=== PATIENT | male | born 1950 | race Caucasian/White ===

== ENCOUNTER 2017-04-30 10:28 | Emergency (ER) | payer MEDICARE, BC, OTHER ==
[~2017-04-30] VITALS: Ht 177.8 cm; Wt 99.8 kg
[2017-04-30] MEDS ORDERED: LUTE20TA PO (10:46)
[2017-04-30] MEDS ORDERED: CALC600T21 PO (10:46)
[2017-04-30] MEDS ORDERED: VENL75TA2 PO (10:46)
[2017-04-30] MEDS ORDERED: MULT1TAB10 PO (10:46)
[2017-04-30] MEDS ORDERED: TRIA0.1L EX (10:46)
[2017-04-30] MEDS ORDERED: LIPI20TA PO (10:46)
[2017-04-30] MEDS ORDERED: VITA200038 PO (10:46)
[2017-04-30] MEDS ORDERED: CARB20TA PO (10:46)
--- NOTE | 2017-04-30 12:20 | REP ---
CT HEAD WITHOUT CONTRAST: HISTORY: Altered mental status. COMPARISON: 11/14/2005 The patient is status post left temporoparietal craniotomy. An area of decreased attenuation is present in the left temporal and parietal lobes. There is dilatation of the overlying cortical sulci and body of the left lateral ventricle. This represents encephalomalacia. A small area of decreased attenuation is present in the right frontal lobe. There is dilatation of the overlying cortical sulci. This represents an old infarction. Areas of decreased attention are present in the periventricular and subcortical white matter. This represents small vessel ischemic disease. There is no intraparenchymal hemorrhage, mass or midline shift. The ventricular system and cortical sulci as well as subarachnoid space in the posterior fossa are dilated consistent with moderate volume loss. There is no extracerebral collection. The visualized sinuses are clear. IMPRESSION: 1. Left temporoparietal lobe encephalomalacia. 2. 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 3. Small vessel ischemic disease. 4. Moderate volume loss. Signed by Godwin Clifton MD 04/30/2017 12:24 P
[2017-04-30 12:37] LABS: BASO % 0.4 % (0.0-1.0); EOS % 0.5 % (0.0-3.0); LARGE UNSTAINED CELL # 0.1 K/mm3 (0.0-0.4); LARGE UNSTAINED CELL % 1.8 % (0.0-4.0); LYMPH # 0.8 K/mm3 (1.5-4.5); LYMPH % 11.4 % (24.0-44.0); MEAN CORPUSCULAR HEMOGLOBIN 31.3 pg (27.0-33.0); MEAN CORPUSCULAR VOLUME 91.9 fl (80.0-96.0); MONO # 0.6 K/mm3 (0.0-0.8); MONO % 8.4 % (0.0-5.0); NEUTROPHILS # 5.2 K/mm3 (1.8-7.7); NEUTROPHILS % 77.6 % (36.0-66.0); PLATELET COUNT, AUTOMATED 184 k/mm3 (150-450); WHITE BLOOD COUNT 6.7 K/mm3 (4.0-10.0)
[2017-04-30 12:51] LABS: ALBUMIN 4.2 GM/DL (3.2-5.2); ALBUMIN/GLOBULIN RATIO 1.14 (1.00-1.93); ALKALINE PHOSPHATASE 143 U/L (45-117); ALT/SGPT 26 U/L (12-78); ANION GAP 7 MEQ/L (8-16); AST/SGOT 16 U/L (15-37); BILIRUBIN,DIRECT 0.1 MG/DL (0.0-0.2); BILIRUBIN,TOTAL 0.5 MG/DL (0.2-1.0); BLOOD UREA NITROGEN 21 MG/DL (7-18); CALCIUM LEVEL 8.9 MG/DL (8.8-10.2); CARBON DIOXIDE LEVEL 26 MEQ/L (21-32); CHLORIDE LEVEL 105 MEQ/L (98-107); CREATININE FOR GFR 1.23 MG/DL (0.70-1.30); GLOMERULAR FILTRATION RATE > 60.0 (>49); GLUCOSE, FASTING 112 MG/DL (80-110); POTASSIUM SERUM 3.7 MEQ/L (3.5-5.1); SODIUM LEVEL 138 MEQ/L (136-145); TOTAL PROTEIN 7.9 GM/DL (6.4-8.2)
[2017-04-30 14:20] VITALS: BP 176/103
== END 2017-04-30 14:33 | disposition home or self-care (01) ==
LOC: M ED 12:44
DX: R41.0 Disorientation, unspecified (principal); E78.00 Pure hypercholesterolemia, unspecified; F32.9 Major depressive disorder, single episode, unspecified; Z87.820 Personal history of traumatic brain injury; R56.9 Unspecified convulsions; Z88.8 Allergy status to other drugs, medicaments and biological substances; Z79.899 Other long term (current) drug therapy

== ENCOUNTER → 2017-08-09 | Outpatient (REF) | payer MEDICARE, OTHER ==
[~2017-08-09] MED LIST: CALC600T60 PO; CARB20TA PO; LIPI20TA PO; LUTE20TA PO; MULT1TAB10 PO; TRIA0.1L EX; VENL75TA2 PO; VITA200038 PO
== END ==
LOC: M LAB REF 16:22
PROVIDERS: ATTEND Internal Medicine
DX: R56.1 Post traumatic seizures (principal)

== ENCOUNTER → 2018-02-07 | Outpatient (REF) | payer MEDICARE, OTHER ==
[2018-02-07 17:02] LABS: CARBAMAZEPINE (TEGRETOL) LEVEL 13.7 UG/ML (4.0-10.0)
== END ==
LOC: M LAB REF 16:29
DX: R56.1 Post traumatic seizures (principal)
CPT/HCPCS: 80156

== ENCOUNTER → 2018-03-19 | Outpatient (CLI) | payer MEDICARE, BC, OTHER ==
[2018-03-19 18:08] LABS: ANION GAP 3 MEQ/L (8-16); BLOOD UREA NITROGEN 15 MG/DL (7-18); CALCIUM LEVEL 8.8 MG/DL (8.8-10.2); CARBON DIOXIDE LEVEL 30 MEQ/L (21-32); CHLORIDE LEVEL 112 MEQ/L (98-107); CREATININE FOR GFR 0.98 MG/DL (0.70-1.30); GLOMERULAR FILTRATION RATE > 60.0 (>49); GLUCOSE, FASTING 96 MG/DL (70-100); SODIUM LEVEL 145 MEQ/L (136-145)
== END ==
LOC: M SMT 11:23
DX: R97.20 Elevated prostate specific antigen [PSA] (principal)
CPT/HCPCS: 80048

== ENCOUNTER → 2018-03-24 | Outpatient (CLI) | payer MEDICARE, BC, OTHER ==
[~2018-03-24] MED LIST changes: -CALC600T60 PO; -CARB20TA PO; -LIPI20TA PO; -LUTE20TA PO; -MULT1TAB10 PO; +PROHANCE 279.3MG/ML 15ML VIAL (A9576) As Ordered; +PROHANCE 279.3MG/ML 5ML VIAL (A9576) As Ordered; -TRIA0.1L EX; -VENL75TA2 PO; -VITA200038 PO
== END ==
LOC: M RAD 13:56
DX: R97.20 Elevated prostate specific antigen [PSA] (principal); R93.8 Abnormal findings on diagnostic imaging of other specified body structures
CPT/HCPCS: A9576

== ENCOUNTER → 2018-04-04 | Outpatient (CLI) | payer MEDICARE, BC, OTHER | LOC: M SMT 09:01 | DX: R97.20 Elevated prostate specific antigen [PSA] (principal) | CPT/HCPCS: G0416 ==

== ENCOUNTER 2018-05-05 12:35 | Outpatient (RCR) | payer MEDICARE, BC, OTHER | END 2018-05-31 | LOC: M OT 12:35 | DX: I69.30 Unspecified sequelae of cerebral infarction (principal); Z51.89 Encounter for other specified aftercare | CPT/HCPCS: 97165 ==

== ENCOUNTER → 2018-09-23 | Outpatient (CLI) | payer MEDICARE, BC, OTHER | LOC: M WUC 15:18 | DX: M54.6 Pain in thoracic spine (principal) | CPT/HCPCS: 72072 ==

== ENCOUNTER → 2018-10-21 | Outpatient (CLI) | payer MEDICARE, BC, OTHER ==
[2018-10-21 18:02] LABS: PROSTATIC SPECIFIC AG MONITOR 5.7 NG/ML (< 4.0)
== END ==
LOC: M SMT 13:20
DX: Z85.46 Personal history of malignant neoplasm of prostate (principal); R97.20 Elevated prostate specific antigen [PSA]
CPT/HCPCS: 84153

== ENCOUNTER → 2019-05-04 | Outpatient (CLI) | payer MEDICARE, BC, OTHER ==
[~2019-05-04] MED LIST changes: +CALC600T60 PO; +CARB20TA PO; +LIPI20TA PO; +LUTE20TA PO; +MULT1TAB10 PO; -PROHANCE 279.3MG/ML 15ML VIAL (A9576) As Ordered; -PROHANCE 279.3MG/ML 5ML VIAL (A9576) As Ordered; +TRIA2LOT EX; +VENL75TA2 PO; +VITA200038 PO
[2019-05-07 00:08] LABS: PSA FREE 0.81 ng/mL; PSA TOTAL 4.5 ng/mL (0.0-4.0)
== END ==
LOC: M SMT 13:09
PROVIDERS: ATTEND Nurse Practitioner Women's Health
DX: R97.20 Elevated prostate specific antigen [PSA] (principal)

== ENCOUNTER 2019-07-23 12:38 | Inpatient (IN) | payer MEDICARE, BC, OTHER ==
[~2019-07-23] VITALS: Ht 172.7 cm; Wt 96.4 kg
[2019-07-23] MEDS ORDERED: CARB200T98 PO (12:45)
[2019-07-23 13:27] LABS: BASO % 0.3 % (0.0-1.0); EOS # 0.1 10^3/uL (0.0-0.50); EOS % 0.7 % (0.0-3.0); HEMATOCRIT 40.5 % (42.0-52.0); HEMOGLOBIN 13.1 g/dl (13.5-17.5); LYMPH # 0.9 10^3/uL (1.5-4.5); LYMPH % 12.8 % (24.0-44.0); MEAN CORPUSCULAR HEMOGLOBIN 30.5 pg (27.0-33.0); MEAN CORPUSCULAR HGB CONC 32.3 g/dl (32.0-36.5); MEAN CORPUSCULAR VOLUME 94.4 fl (80.0-96.0); MONO # 0.9 10^3/uL (0.0-0.8); MONO % 12.2 % (0.0-5.0); NEUTROPHILS # 5.3 10^3/uL (1.8-7.7); NEUTROPHILS % 73.7 % (36.0-66.0); PLATELET COUNT, AUTOMATED 172 10^3/uL (150-450); RED BLOOD COUNT 4.29 10^6/uL (4.30-6.10); WHITE BLOOD COUNT 7.2 10^3/uL (4.0-10.0)
[2019-07-23 13:47] LABS: ERYTHROCYTE SEDIMENTATION RATE 53 mm/hr (0-20)
[2019-07-23 13:58] LABS: BLOOD UREA NITROGEN 21 MG/DL (7-18); CALCIUM LEVEL 9.1 MG/DL (8.8-10.2); CARBON DIOXIDE LEVEL 27 MEQ/L (21-32); CHLORIDE LEVEL 111 MEQ/L (98-107); CREATININE FOR GFR 1.09 MG/DL (0.70-1.30); GLOMERULAR FILTRATION RATE > 60.0 (>49); GLUCOSE, FASTING 90 MG/DL (70-100); SODIUM LEVEL 144 MEQ/L (136-145)
--- NOTE | 2019-07-23 14:14 | REP ---
Foot four views: There is no radiopaque foreign body. There is a 7 ml lucency in the head of the great toe metatarsal with adjacent soft tissue edema. This could represent focal osteomyelitis with overlying cellulitis. Mineralization and joint spaces otherwise are unremarkable. There are no calcifications or foreign bodies. Skeletal soft tissue structures otherwise are unremarkable. Impression: Focal lucency in the head of the great toe metatarsal with adjacent soft tissue edema, possibly focal osteomyelitis with adjacent cellulitis. No radiopaque foreign body. Electronically Signed by Quan Meyer MD 07/23/2019 02:05 P
[2019-07-23] MEDS ORDERED: VENL150C43 PO (14:24)
[2019-07-23] MEDS ORDERED: LUTE20TA2 PO (14:24)
[2019-07-23] MEDS ORDERED: ATOR40TA75 PO (14:24)
[2019-07-23] MEDS ORDERED: CARB20TAXR PO (14:24)
[2019-07-23] MEDS ORDERED: MULTCAP PO (14:24)
[2019-07-23] MEDS ORDERED: CALC1TAB63 PO (14:24)
[2019-07-23] MEDS ORDERED: ARIP1TAB6 PO (14:26)
[2019-07-23] MEDS ORDERED: FINA5TAB2 PO (14:27)
[2019-07-23] MEDS ORDERED: IBUP1TAB6 PO (14:28)
[2019-07-23] MEDS ORDERED: CEFEPIME HCL 2 GM in D5W MINI-BAG PLUS 50 ML IV ONE (15:15)
[2019-07-23] MEDS ORDERED: VANCOMYCIN HCL 1,000 MG, VIAL MATE ADAPTER 1 EACH in D5W 250 ML IV ONE (15:15)
[2019-07-23] MEDS ORDERED: LIDOCAINE 4% CREAM 5GM (LMX4) TOP ONE (15:30)
[2019-07-23] MEDS ORDERED: ACETAMINOPHEN 500 MG TAB PO PRN (16:30)
[2019-07-23 18:30] VITALS: BP 160/70
[2019-07-23 19:30] LABS: ALBUMIN 3.5 GM/DL (3.2-5.2); ALT/SGPT 21 U/L (12-78); BILIRUBIN,DIRECT < 0.1 MG/DL (0.0-0.2); BILIRUBIN,TOTAL 0.3 MG/DL (0.2-1.0); TOTAL PROTEIN 7.6 GM/DL (6.4-8.2)
[2019-07-23] MEDS: CEFTAROLINE FOSAMIL 400 MG in D5W MINI-BAG PLUS 50 ML IV SCH (21:13)
[2019-07-23] MEDS: ATORVASTATIN 20 MG TAB PO SCH (21:13)
[2019-07-23] MEDS: carBAMazepine XR 200 MG TAB PO SCH (21:14)
--- NOTE | 2019-07-23 21:58 | HPE ---
DATE OF ADMISSION: 07/23/2019 CHIEF COMPLAINT: Cellulitis with suspected osteomyelitis, right great toe. PRIMARY CARE PROVIDER:: Dr. Anaya Butler ATTENDING PHYSICIAN: Hospitalist group. 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 He had cellulitis, and x-ray of the foot suggested early osteomyelitis, so he was admitted for further treatment. He has a puncture wound on the bottom of the left great toe on the plantar surface, but he has no memory of stepping on anything. Emergency room staff drained a small abscess in this area after I saw the patient, and the cultures are pending. He denies any fevers or chills. No history of peripheral arterial disease. Denies any history of diabetes. PAST MEDICAL HISTORY: Shows traumatic brain injury and trauma. He has history of seizures, depression, hyperlipidemia. He has had elevated prostate-specific antigens (PSAs). He has had four transrectal ultrasound-guided (TRUS) prostate biopsies since 2009, none of which show cancer. He has sleep apnea, for which he is on continuous positive airway pressure (CPAP). He is followed by Dr. Mahmood from the neurology group for his cognitive dysfunction/trauma and brain injury. MEDICATIONS: - Abilify 5 mg at bedtime - Atorvastatin 40 mg daily - carbamazepine, Tegretol ER, 200 mg in the morning, 400 mg at bedtime - finasteride 5 mg daily - Effexor XR 150 mg daily ALLERGIES: IODINE. SOCIAL HISTORY: Lives alone. He has friends who drive him to appointments and such. Quit smoking over 10 years ago. He is . Sister lives in [place]. REVIEW OF SYSTEMS: No fevers, chills, polyuria, polydipsia. Denies any drainage from the foot. No history of any cardiac disease. FAMILY HISTORY: Noncontributory. PHYSICAL EXAMINATION: Afebrile, 99.1, 147/82. Vital signs per flow sheet. GENERAL APPEARANCE: Alert, conversant. No distress. Pupils equal, round, and reactive to light. TMs and oropharynx benign. NECK: No masses. LUNGS: Clear. HEART: Without murmur. ABDOMEN: Soft, nontender. No masses. Good distal pulses. His left great toe is erythematous and swollen. There is purulence under the skin with what looks like a puncture wound present (debrided and drained after by examination). Erythema extending to the forefoot, and the border has been marked. Moves arms and legs with equal strength. MENTAL STATUS: Shows he answers questions appropriately. Answers are goal directed. Speech is fluent. LABORATORY DATA: White count is normal. Hemoglobin 11.3, platelets 172, sedimentation 53, C-reactive protein 65. Sodium 144, potassium 5, BUN 21, creatinine 1.0, glucose 90. X-ray of the foot suggests possibility of osteomyelitis, head of the metatarsal of the great toe of the left foot. IMPRESSION: Suspected osteomyelitis and cellulitis, left foot. PLAN: 1. Patient will be admitted to a medical bed, started on IV antibiotics with ceftaroline. Will consult podiatry. MRI of the foot has been ordered. The wound was drained in the emergency room. He says he is not diabetic but will check a hemoglobin A1c. 2. 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 Continue his current regimen for this. 3. Hyperlipidemia. Continue his atorvastatin 40 mg daily. 4. History of depression. Continue Effexor XR 150 mg daily.
[2019-07-23 22:00] VITALS: BP 153/85
[2019-07-24 06:36] LABS: HEMATOCRIT 41.3 % (42.0-52.0); HEMOGLOBIN 13.4 g/dl (13.5-17.5); MEAN CORPUSCULAR HEMOGLOBIN 31.2 pg (27.0-33.0); MEAN CORPUSCULAR HGB CONC 32.4 g/dl (32.0-36.5); PLATELET COUNT, AUTOMATED 157 10^3/uL (150-450); WHITE BLOOD COUNT 4.8 10^3/uL (4.0-10.0)
[2019-07-24 06:56] LABS: BLOOD UREA NITROGEN 18 MG/DL (7-18); CALCIUM LEVEL 8.8 MG/DL (8.8-10.2); CARBON DIOXIDE LEVEL 29 MEQ/L (21-32); CHLORIDE LEVEL 110 MEQ/L (98-107); CREATININE FOR GFR 1.03 MG/DL (0.70-1.30); GLOMERULAR FILTRATION RATE > 60.0 (>49); GLUCOSE, FASTING 95 MG/DL (70-100); POTASSIUM SERUM 4.4 MEQ/L (3.5-5.1); SODIUM LEVEL 144 MEQ/L (136-145)
[2019-07-24] MEDS: carBAMazepine XR 200 MG TAB PO SCH ×2 (08:29→21:01)
[2019-07-24] MEDS: VENLAFAXINE **XR** 75MG CAPSULE PO SCH (08:29)
[2019-07-24] MEDS: FINASTERIDE 5 MG TAB PO SCH (08:29)
[2019-07-24] MEDS: ENOXAPARIN 40 MG/0.4 ML SYRINGE (J1650) SC SCH (08:30)
[2019-07-24] MEDS: CEFTAROLINE FOSAMIL 400 MG in D5W MINI-BAG PLUS 50 ML IV SCH ×2 (08:30→21:02)
--- NOTE | 2019-07-24 09:08 | IPNPDOC ---
Date Seen The patient was seen on 07/24/19. Progress Note SUBJECTIVE: Patient is a 68-year-old male with history of cognitive dysfunction secondary to head trauma, who presented with a wound on the plantar surface of the left great toe with surrounding erythema and swelling. Patient was seen and examined today laying comfortably in bed. He states overall he feels well. He denies any current pain in his toe. He states if he does get up and walk around on it or if he moves it too much it does start to hurt. He denies any prior lesions similar to this, but the patient does have difficulty answering questions about when he first noticed the wound and any symptoms he had at home. Patient does have some difficulty with memory, which is chronic and secondary to prior head trauma. He denies any fevers, chills, sweats lightheadedness, chest pain, shortness of breath, abdominal pain, nausea, vomiting, diarrhea. OBJECTIVE PHYSICAL EXAMINATION: VITAL SIGNS: Please see below. GENERAL: Alert, cooperative, comfortable, no acute distress HEENT: PERRLA, EOMI, moist mucous membranes CARDIOVASCULAR: Regular rate and rhythm, normal S1 and S2, no murmur, rub, or gallop. RESPIRATORY: Clear to auscultation bilaterally without wheezing, rales, rhonchi ABDOMINAL:, Soft, nontender, nondistended, bowel sounds present, no masses or hepatosplenomegaly appreciated EXTREMITIES: On the plantar surface of the left great toe, there is an open wound without drainage or pus. There is surrounding erythema and swelling which does not pass the marker border line, which was outlined yesterday, no warmth over this region. Pulses 2+/4 in dorsalis pedis arteries bilaterally. Right foot does not appear swollen or erythematous, and there are no other open wounds. NEUROLOGICAL: Alert and oriented 3 to person, place and time, no focal deficits appreciated PSYCHOLOGICAL: Mood and affect normal LABORATORY DATA, IMAGING STUDIES, MICROBIOLOGY: Please see below. Foot XR 07/23: Focal lucency in the head of the great toe metatarsal with adjacent soft tissue edema, possibly focal osteomyelitis with adjacent cellulitis. 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 PROBLEMS: 1. Left foot open wound with surrounding cellulitis and possible osteomyelitis. Patient denies any history of diabetes and hemoglobin A1c is 6.0 CRP elevated at 6.5, improved to 4.7 today Blood cultures 2 pending, wound culture pending. Continue antibiotics with Ceftaroline Foot x-ray suggests possible osteomyelitis, follow-up MRI of the foot pending. Consulted Dr. Ricci from podiatry, appreciate his input and recommendations 2. Traumatic brain injury with history of seizures. Patient does have some difficulty remembering if he had any symptoms at home or when this first started. Patient does have an aide who helps him around the house and helps Him to appointments. Continue home medication, carbamazepine 3. Hyperlipidemia. Continue home Lipitor 4. Depression. Continue home venlafaxine and aripiprazole 5. DVT prophylaxis. Lovenox DISPOSITION: . VS, I&O, 24H, Fishbone Vital Signs/I&O Vital Signs Date Time Temp Pulse Resp B/P (MAP) Pulse Ox O2 Delivery O2 Flow Rate FiO2 07/23/19 22:00 96.8 68 16 153/85 (107) 97 07/23/19 18:28 Room Air I&O- Last 24 Hours up to 6 AM 07/24/19 05:59 Intake Total 620 ml Output Total 0 ml Balance 620 ml Laboratory Data 24H LABS Laboratory Tests 2 07/23/19 13:18: Immature Granulocyte % (Auto) 0.3, White Blood Count 7.2, Red Blood Count 4.29L, Hemoglobin 13.1L, Hematocrit 40.5L, Mean Corpuscular Volume 94.4, Mean Corpuscular Hemoglobin 30.5, Mean Corpuscular Hemoglobin Concent 32.3, Red Cell Distribution Width 13.2, Platelet Count 172, Neutrophils (%) (Auto) 73.7H, Lymphocytes (%) (Auto) 12.8L, Monocytes (%) (Auto) 12.2H, Eosinophils (%) (Auto) 0.7, Basophils (%) (Auto) 0.3, Neutrophils # (Auto) 5.3, Lymphocytes # (Auto) 0.9L, Monocytes # (Auto) 0.9H, Eosinophils # (Auto) 0.1, Basophils # (Auto) 0.0, Nucleated Red Blood Cells % (auto) 0.0, Erythrocyte Sedimentation Rate 53H, Anion Gap 6L, Glomerular Filtration Rate > 60.0, Blood Urea Nitrogen 21H, Creatinine 1.09, Sodium Level 144, Potassium Level 5.0, Chloride Level 111H, Carbon Dioxide Level 27, Calcium Level 9.1, C-Reactive Protein, Quantitative 6.50H 07/23/19 13:20: D-Dimer, Quantitative 3109.25H 07/23/19 18:50: Estimated Mean Plasma Glucose 126H, Hemoglobin A1c 6.0, Aspartate Amino Transf (AST/SGOT) 10, Alanine Aminotransferase (ALT/SGPT) 21, Alkaline Phosphatase 107, Total Bilirubin 0.3, Direct Bilirubin < 0.1, Total Protein 7.6, Albumin 3.5, Albumin/Globulin Ratio 0.85L 07/24/19 06:03: Nucleated Red Blood Cells % (auto) 0.0, Anion Gap 5L, Glomerular Filtration Rate > 60.0, Blood Urea Nitrogen 18, Creatinine 1.03, Sodium Level 144, Potassium Level 4.4, Chloride Level 110H, Carbon Dioxide Level 29, Calcium Level 8.8, C- Reactive Protein, Quantitative 4.70H CBC/BMP Laboratory Tests 07/23/19 13:18 Red Blood Count 4.29 L, Mean Corpuscular Volume 94.4, Mean Corpuscular Hemoglobin 30.5, Mean Corpuscular Hemoglobin Concent 32.3, Red Cell Distribution Width 13.2, Neutrophils (%) (Auto) 73.7 H, Lymphocytes (%) (Auto) 12.8 L, Monocytes (%) (Auto) 12.2 H, Eosinophils (%) (Auto) 0.7, Basophils (%) (Auto) 0.3, Neutrophils # (Auto) 5.3, Lymphocytes # (Auto) 0.9 L, Monocytes # (Auto) 0.9 H, Eosinophils # (Auto) 0.1, Basophils # (Auto) 0.0, Calcium Level 9.1 07/24/19 06:03 Red Blood Count 4.30, Mean Corpuscular Volume 96.0, Mean Corpuscular Hemoglobin 31.2, Mean Corpuscular Hemoglobin Concent 32.4, Red Cell Distribution Width 13.1, Calcium Level 8.8 Microbiology Microbiology 07/23/19 Blood Culture, Received Pending 07/23/19 Blood Culture, Received Pending 07/23/19 Gram Stain, Received Pending 07/23/19 Wound Culture, Received Pending TY PEREA PGY-1 Jul 24, 2019 09:08
[2019-07-24 14:00] VITALS: BP 132/84
--- NOTE | 2019-07-24 18:21 | CR ---
DATE OF CONSULTATION: 07/24/2019 REASON FOR CONSULTATION: Right great toe infection. Des Muñoz is a pleasant 68-year-old male who was admitted through the emergency room (ER) with cellulitis stemming from his right great toe. Patient has a history of traumatic brain injury, and he is not a good historian. Does not recall how long or when the toe became infected. He is not sure if he stepped on anything. He is noted to have worsening redness and was admitted to the ER. He has been placed on empiric antibiotics. A small incision and drainage in the ER was performed, and culture was taken, which is currently pending. PAST MEDICAL HISTORY: 1. Traumatic brain injury. 2. History of seizures. 3. Depression. 4. Hyperlipidemia. 5. History of elevated prostate-specific antigens (PSAs). 6. Sleep apnea. ALLERGIES: Iodine. SOCIAL HISTORY: Former smoker. REVIEW OF SYSTEMS: Negative for nausea, vomiting, fever, or chills. Vital signs are examined. He has been afebrile since admission. Labs are reviewed. White blood cell count is 4.8, on admission was 7.2. ESR is 53. CRP today is 4.7, down from 6.5. His hemoglobin A1c was 6. X-rays are reviewed. There is a lucency noted in the first metatarsal head; however, this is not adjacent to the plantar wound. This is most likely incidental and not related to osteomyelitis. Patient does have a bunion at this site, which would explain possible bone cyst. Lower extremity examination: There is erythema and edema to the right foot. This is improved from the demarcated line. There is an ulceration of the plantar aspect of the hallux with some fibrotic tissue. There is no purulence or necrosis. The wound does not probe to bone. ASSESSMENT: A 68-year-old male with right hallux ulceration and cellulitis. At this time I do not believe there is osteomyelitis in the wound, as there is no obvious penetrating ulcer. Continue empiric antibiotics. Await culture results. Patient most likely will be able to be discharged with 2 weeks of soft tissue infection coverage. He will have followup with me in the office. Will have antibiotic and Band-Aid performed to the toe wound daily.
[2019-07-24] MEDS ORDERED: PROHANCE 279.3MG/ML 5ML VIAL (A9576) As Ordered ONE (20:18)
[2019-07-24] MEDS ORDERED: PROHANCE 279.3MG/ML 15ML VIAL (A9576) As Ordered ONE (20:18)
[2019-07-24] MEDS: ATORVASTATIN 20 MG TAB PO SCH (21:00)
--- NOTE | 2019-07-24 21:01 | REPVR ---
EXAM: MR Left Lower Extremity Without and With Contrast, Foot EXAM DATE/TIME: 07/24/2019 4:30 PM CLINICAL HISTORY: 68 years old, male; Cellulitis; Toes; Left; Patient HX: Big toe and distal foot red and swollen. ; Additional info: Osteo TECHNIQUE: Imaging protocol: MR of the Left foot without and with intravenous contrast. Contrast material: PROHANCE; Contrast volume: 19 ml; Contrast route: IV; COMPARISON: CR Foot, complete 07/23/2019 1:42 PM FINDINGS: There is mild, diffuse soft tissue swelling and subcutaneous edema with associated enhancement and overlying skin thickening, compatible with cellulitis/myositis. There is a small soft tissue ulceration along the medial plantar surface of the great toe. No organized fluid collection is identified to suggest abscess. There is no soft tissue mass. No acute tendon or ligament injury is identified. There is no MR evidence of acute fracture or dislocation. Alignment is anatomic. Mild degenerative changes are most pronounced at the hallux metatarsal phalangeal joint, where there are mild associated subcortical cystic changes. Bone marrow signal is otherwise normal. No erosive or destructive changes are seen. There is no lytic or blastic lesion. There is no significant effusion. IMPRESSION: 1. Cellulitis/myositis with a soft tissue ulceration along the medial plantar surface of the great toe. No organized fluid collection to suggest abscess. No MR evidence of acute osteomyelitis. 2. Additional findings, as above. Electronically signed by: Jamison Gallegos On 07/24/2019 21:00:54 PM
[2019-07-24 22:00] VITALS: BP 152/90
[2019-07-25 06:00] VITALS: BP 129/86
[2019-07-25 06:02] LABS: HEMATOCRIT 41.6 % (42.0-52.0); HEMOGLOBIN 13.6 g/dl (13.5-17.5); MEAN CORPUSCULAR HEMOGLOBIN 31.1 pg (27.0-33.0); MEAN CORPUSCULAR HGB CONC 32.7 g/dl (32.0-36.5); MEAN CORPUSCULAR VOLUME 95.2 fl (80.0-96.0); PLATELET COUNT, AUTOMATED 169 10^3/uL (150-450); RED BLOOD COUNT 4.37 10^6/uL (4.30-6.10)
[2019-07-25 06:34] LABS: BLOOD UREA NITROGEN 16 MG/DL (7-18); CARBON DIOXIDE LEVEL 28 MEQ/L (21-32); CHLORIDE LEVEL 108 MEQ/L (98-107); CREATININE FOR GFR 1.04 MG/DL (0.70-1.30); GLOMERULAR FILTRATION RATE > 60.0 (>49); GLUCOSE, FASTING 91 MG/DL (70-100); POTASSIUM SERUM 4.3 MEQ/L (3.5-5.1); SODIUM LEVEL 140 MEQ/L (136-145)
[2019-07-25] MEDS ORDERED: NEOSOI EXT (08:37)
[2019-07-25] MEDS ORDERED: LEVA1TAB2 PO (08:37)
[2019-07-25] MEDS: VENLAFAXINE **XR** 75MG CAPSULE PO SCH (08:45)
[2019-07-25] MEDS: ENOXAPARIN 40 MG/0.4 ML SYRINGE (J1650) SC SCH (08:45)
[2019-07-25] MEDS: carBAMazepine XR 200 MG TAB PO SCH (08:45)
[2019-07-25] MEDS: FINASTERIDE 5 MG TAB PO SCH (08:45)
[2019-07-25 09:04] VITALS: BP 111/74
[2019-07-25] MEDS ORDERED: LevoFLOXacin 500 MG TABLET PO SCH (10:30)
--- NOTE | 2019-07-25 11:36 | DS.PDOC ---
Discharge Summary General Date of Admission Jul 23, 2019 at 16:21 Date of Discharge 07/25/2019 Primary Care Physician: SHAUNA LIEBERMAN DO Attending Physician: ASHLEY LOMBARDI MD Specialist/Consultants Involve: MARTA LYNCH DPM Discharge Summary PROCEDURES PERFORMED DURING STAY: Abscess drainage and wound debridement in the ED ADMITTING DIAGNOSES: 1. Left hallux abscess and right foot cellulitis. 2. Suspected osteomyelitis. 3. 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 4. Hyperlipidemia. 5. Depression DISCHARGE DIAGNOSES: 1. Right hallux ulceration and cellulitis. 2. 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 3. Hyperlipidemia. 4. Depression COMPLICATIONS/CHIEF COMPLAINT: Osteomyelitis. HISTORY OF PRESENT ILLNESS: 68-year-old male with a history of cognitive dysfunction secondary to traumatic brain injury, who presented to the emergency room with a erythematous and swollen left foot and wound on the plantar surface of the hallux of the left foot. The patient has cognitive dysfunction which includes issues with memory, and he was unable to provide a good history. He is unsure when the wound first appeared and when the redness and swelling in his foot first appeared. He states his foot does not hurt at rest but does start to bother him when he is walking on it. He denies any histories of diabetes or peripheral artery disease. His sister was currently visiting him at that time and stated she did not notice it until the day of presentation to the emergency room. The patient denies any fevers, chills, chest pain, shortness of breath, nausea, vomiting, abdominal pain, diarrhea. He denies any other occurrences of wounds on his foot. HOSPITAL COURSE: In the emergency room, the wound was found to have an abscess which was drained and the area was debridement. The erythematous area was marked with a marker. The patient was admitted for antibiotics due to possible osteomyelitis seen on x-ray. Patient was started on empiric antibiotics with ceftaroline, and wound culture and 2 blood cultures were sent. The patient was scheduled for an MRI and Dr. Lynch of podiatry was consulted. The MRI was negative for osteomyelitis. Wound culture came back positive for Serratia Marcescens and both blood cultures were negative after 24 hours. Based on culture and sensitivity results, the patient was switched onto oral Levaquin to complete a 14 day course. The patient will follow-up in the outpatient setting with Dr. Lynch. The patient will continue to apply a clean dressing to the wound each day. On the day of discharge, the patient was found to be stable and safe for discharge. DISCHARGE MEDICATIONS: Please see below. ALLERGIES: Please see below. PHYSICAL EXAMINATION ON DISCHARGE: VITAL SIGNS: Please see below. GENERAL: Alert, cooperative, comfortable, no acute distress HEENT: PERRLA, EOMI, moist mucous membranes CARDIOVASCULAR EXAMINATION: Regular rate and rhythm, normal S1 and S2, no murmur, rub, or gallop. RESPIRATORY EXAMINATION: Clear to auscultation bilaterally without wheezing, rales, rhonchi ABDOMINAL EXAMINATION: Soft, nontender, nondistended, bowel sounds present, no masses or hepatosplenomegaly appreciated EXTREMITIES: On the plantar surface of the left great toe, there is an open wound without drainage or pus. There is surrounding erythema and swelling which does not pass the marker border line, which was outlined yesterday, no warmth over this region. Pulses 2+/4 in dorsalis pedis arteries bilaterally. Right foot does not appear swollen or erythematous, and there are no other open wounds. NEUROLOGICAL EXAMINATION: Alert and oriented 3 to person, place and time, no focal deficits appreciated PSYCHIATRIC EXAMINATION: Mood and affect normal LABORATORY DATA: Please see below. IMAGING: Foot XR 07/23: Focal lucency in the head of the great toe metatarsal with adjacen t soft tissue edema, possibly focal osteomyelitis with adjacent cellulitis. No radiopaque foreign body. Foot MRI 07/24: 1. Cellulitis/myositis with a soft tissue ulceration along the medial plantar surface of the great toe. No organized fluid collection to suggest abscess. No MR evidence of acute osteomyelitis. 2. Additional findings, as above. PROGNOSIS: Good ACTIVITY: As tolerated. DIET: As tolerated DISCHARGE PLAN: Home DISPOSITION: . DISCHARGE INSTRUCTIONS: 1. Follow up with your PCP in 7-10 days. 2. Follow up with podiatry, Dr. Lynch in 10-14 days. 3. Please complete a full 14 day course of Levaquin antibiotic. You received the first dose while in the hospital, and can garbage pick up man the remaining course at your pharmacy. 4. Please apply triple antibiotic ointment to the wound on her foot daily and cover with a bandage. 4. If you're symptoms return or your condition worsens, call your PCP or return to the emergency room for further evaluation. ITEMS TO FOLLOWUP ON ON OUTPATIENT: 1. Foot ulceration and cellulitis DISCHARGE CONDITION: Stable. TIME SPENT ON DISCHARGE: Greater than 35 minutes. Vital Signs/I&Os Vital Signs Date Time Temp Pulse Resp B/P (MAP) Pulse Ox O2 Delivery O2 Flow Rate FiO2 07/25/19 09:04 97.0 74 18 111/74 (86) 97 07/23/19 18:28 Room Air I&O- Last 24 Hours up to 6 AM 07/25/19 06:00 Intake Total 710 ml Output Total 600 ml Balance 110 ml Laboratory Data Labs 24H Laboratory Tests 2 07/25/19 05:44: Nucleated Red Blood Cells % (auto) 0.0, Anion Gap 4L, Glomerular Filtration Rate > 60.0, Blood Urea Nitrogen 16, Creatinine 1.04, Sodium Level 140, Potassium Level 4.3, Chloride Level 108H, Carbon Dioxide Level 28, Calcium Level 9.0 CBC/BMP Laboratory Tests 07/25/19 05:44 Red Blood Count 4.37, Mean Corpuscular Volume 95.2, Mean Corpuscular Hemoglobin 31.1, Mean Corpuscular Hemoglobin Concent 32.7, Red Cell Distribution Width 12.9, Calcium Level 9.0 Microbiology Microbiology 07/23/19 Blood Culture - Preliminary, Resulted No growth after 24 hours . All specim... 07/23/19 Blood Culture - Preliminary, Resulted No growth after 24 hours . All specim... 07/23/19 Gram Stain - Final, Complete 07/23/19 Wound Culture - Final, Complete Serratia Marcescens Discharge Medications Scheduled Aripiprazole (Aripiprazole) 5 Mg Tablet, 5 MG PO QHS, (Reported) Atorvastatin Calcium (Atorvastatin Calcium) 40 Mg Tablet, 40 MG PO DAILY, (Reported) Calcium Carbonate/Vitamin D3 (Calcium 600-Vit D3 400 Tablet) 1 Each Tablet, 1 TAB PO DAILY, (Reported) Carbamazepine (Carbamazepine ER) 200 Mg Tab.er.12h, 200 MG PO QAM, (Reported) Carbamazepine (Carbamazepine ER) 200 Mg Tab.er.12h, 400 MG PO QHS, (Reported) Cholecalciferol (Vitamin D3) (Vitamin D3) 2,000 Unit Tab, 2,000 UNIT PO DAILY, (Reported) Finasteride (Finasteride) 5 Mg Tablet, 5 MG PO DAILY, (Reported) Levofloxacin (Levaquin) 500 Mg Tablet, 500 MG PO DAILY@06 Please take 1 tab daily 1 hr before a meal or 2 hrs after a meal. Do not take with antacids, iron, or dairy products. Lutein (Lutein) 20 Mg Tablet, 20 MG PO DAILY, (Reported) Multivitamin (Multivitamins) 1 Each Capsule, 1 CAP PO DAILY, (Reported) Neomycin/Bacitracin/Polymyxinb (Triple Antibiotic Ointment) 1 Each Oint.pack, 0.9 GM EXT DAILY Venlafaxine HCl (Venlafaxine HCl ER) 150 Mg Cap.er.24h, 150 MG PO DAILY, (Reported) Scheduled PRN Ibuprofen (Ibuprofen) 600 Mg Tablet, 600 MG PO QID PRN for PAIN, (Reported) Allergies Coded Allergies: iodine (Verified Allergy, Unknown, 07/23/19) TY PEREA PGY-1 Jul 25, 2019 11:36
== END 2019-07-25 11:45 | disposition home or self-care (01) | DRG 603 ==
LOC: M ED 12:38 → M ED INP 16:21 → M MSPAV 18:32
PROVIDERS: ADMIT Family Medicine; ATTEND Internal Medicine
DX: L03.032 Cellulitis of left toe (principal); L97.518 Non-pressure chronic ulcer of other part of right foot with other specified severity; R56.9 Unspecified convulsions; F32.9 Major depressive disorder, single episode, unspecified; B96.89 Other specified bacterial agents as the cause of diseases classified elsewhere; M21.611 Bunion of right foot; E78.5 Hyperlipidemia, unspecified; G47.30 Sleep apnea, unspecified; F09 Unspecified mental disorder due to known physiological condition; Z87.820 Personal history of traumatic brain injury; Z79.899 Other long term (current) drug therapy; Z88.8 Allergy status to other drugs, medicaments and biological substances; Z87.891 Personal history of nicotine dependence

== ENCOUNTER → 2019-08-26 | Outpatient (REF) | payer MEDICARE, OTHER ==
[~2019-08-26] MED LIST changes: +ARIP1TAB6 PO; +ATOR40TA75 PO; +CALC1TAB63 PO; +CARB200T98 PO; +CARB20TAXR PO; +FINA5TAB2 PO; +IBUP1TAB6 PO; +LEVA1TAB2 PO; +LUTE20TA2 PO; +MULTCAP PO; +NEOSOI EXT; +VENL150C43 PO
== END ==
LOC: M LAB REF 12:36
PROVIDERS: ATTEND Internal Medicine
DX: L02.612 Cutaneous abscess of left foot (principal); L03.119 Cellulitis of unspecified part of limb

== ENCOUNTER → 2019-10-20 | Outpatient (REF) | payer MEDICARE, OTHER ==
[2019-10-20 18:40] LABS: BASO % 0.5 % (0.0-1.0); EOS # 0.1 10^3/uL (0.0-0.5); HEMATOCRIT 43.8 % (42.0-52.0); HEMOGLOBIN 14.1 g/dl (13.5-17.5); LYMPH # 0.9 10^3/uL (1.5-5.0); LYMPH % 14.6 % (24.0-44.0); MEAN CORPUSCULAR HEMOGLOBIN 30.5 pg (27.0-33.0); MEAN CORPUSCULAR HGB CONC 32.2 g/dl (32.0-36.5); MEAN CORPUSCULAR VOLUME 94.6 fl (80.0-96.0); MONO # 0.7 10^3/uL (0.0-0.8); MONO % 10.8 % (0.0-5.0); NEUTROPHILS # 4.4 10^3/uL (1.5-8.5); NEUTROPHILS % 72.8 % (36.0-66.0); PLATELET COUNT, AUTOMATED 160 10^3/uL (150-450); RED BLOOD COUNT 4.63 10^6/uL (4.30-6.10)
[2019-10-20 19:18] LABS: BILIRUBIN,TOTAL 0.3 MG/DL (0.2-1.0); CREATININE FOR GFR 1.29 MG/DL (0.70-1.30); GLOMERULAR FILTRATION RATE 58.8 (>49); POTASSIUM SERUM 4.5 MEQ/L (3.5-5.1)
[2019-10-20 19:19] LABS: CARBAMAZEPINE (TEGRETOL) LEVEL 12.2 UG/ML (4.0-10.0); TOTAL PROTEIN 7.4 GM/DL (6.4-8.2)
[2019-10-20 19:38] LABS: FOLATE 18.8 NG/ML (>5.4); TOTAL 25(OH) VITAMIN D 25.2 NG/ML (30.0-100.0)
== END ==
LOC: M LABNEURO 14:40
PROVIDERS: ATTEND Psychiatry & Neurology Neurology
DX: G40.909 Epilepsy, unspecified, not intractable, without status epilepticus (principal); E55.9 Vitamin D deficiency, unspecified; E53.8 Deficiency of other specified B group vitamins

== ENCOUNTER → 2022-09-18 | Outpatient (REF) | payer MEDICARE, OTHER | LOC: M LAB REF 16:05 | PROVIDERS: ATTEND Internal Medicine | DX: R56.1 Post traumatic seizures (principal) ==

== ENCOUNTER → 2022-10-17 | Outpatient (CLI) | payer MEDICARE, BC, OTHER | LOC: M PLALAB 11:26 | PROVIDERS: ATTEND Nurse Practitioner Women's Health | DX: R97.20 Elevated prostate specific antigen [PSA] (principal) ==

== ENCOUNTER → 2023-01-25 | Outpatient (CLI) | payer MEDICARE, BC, OTHER | LOC: M PLAIMG 08:02 | PROVIDERS: ATTEND Psychiatry & Neurology Neurology | DX: S06.6X0S Traumatic subarachnoid hemorrhage without loss of consciousness, sequela (principal); G40.209 Localization-related (focal) (partial) symptomatic epilepsy and epileptic syndromes with complex partial seizures, not intractable, without status epilepticus; G31.84 Mild cognitive impairment of uncertain or unknown etiology ==